=== PATIENT | female | born 1955 | race Two or more races ===

== ENCOUNTER 2022-05-30 23:56 | Inpatient (IN) | payer OTHER ==
--- NOTE | 2022-05-31 00:12 | NUR ---
SE RECIBE PTE ALERTA Y ORIETNADA X3 CUAL REFIERE QUE NO SIENTE MADHAV PIERNAS. FIELDS HIJO JOHN REFIERE QUE LA ENCONTRO EN FIELDS HOGAR DESORIENTADA X3. SE ROSA S/V Y SE UBICA.
[2022-05-31] MEDS ORDERED: LIPITOR20 MG PO (00:15)
[2022-05-31] MEDS ORDERED: VALSARTAN80 MG PO (00:15)
[2022-05-31] MEDS ORDERED: CATAPRES0.3 MG PO (00:15)
[2022-05-31] MEDS ORDERED: PEPCID AC20 MG (00:16)
[2022-05-31] MEDS ORDERED: LOPRESSOR25 MG PO (00:16)
[2022-05-31] MEDS ORDERED: GLIMEPIRIDE4 MG (00:16)
[2022-05-31] MEDS ORDERED: NEURONTIN300 MG PO (00:16)
[2022-05-31] MEDS ORDERED: CYMBALTA60 MG PO (00:16)
--- NOTE | 2022-05-31 01:19 | NUR ---
PTE EVALUADA POR EL DR FLORES QUIEN ORDENA EL TX. MR R ESQUIVEL ORIENTA SOBRE EL TX ORDENADO, LO CUAL REFIERE ENTENDER, REALIZA PRUEBAS DE LABORATORIO Y ADMINISTRA MEDICAMENTOS ALEX ORDEN MEDICA Y SIGUIENDO MEDIDAS ASEPTICAS. PENDIENTE A REALIZAR DUPPLEX EN LA MANANA. SE MANTIENE BAJO OBSERVACION.
--- NOTE | 2022-05-31 02:09 | NUR ---
SE REALIZA ADMINISTRACION DE MEDICAMENTOS.
--- NOTE | 2022-05-31 07:07 | NUR ---
PACIENTE FEMENINA ALERTA Y ORIENTADA X3 EN ALBERTO #9 CON BARRANDAS ELEVADAS. AREA DE VENOPUNCION SUNNY DE EDEMA Y ENROJECIMIENTO. PENDIENTE VENOUS DUPLEX A REALIZAR. SE LE JIAN EN TODO MOMENTO PRIVACIDAD Y SEGURIDAD.
--- NOTE | 2022-05-31 15:44 | NUR ---
SE RECIBE PTE FEMENINA ALERTA Y ORIENTADA X3 DEL TURNO ANTERIOR, CON BUEN PATRON RESPIRATORIO Y SIN QUEJA DE DOLOR. VENOPUNCION PATENTE, SUNNY DE EDEMA Y ERITEMA RECIBIENDO TERAPIA DE IVFS 0.9NSS BAJANDO A 100ML/HR. PENDIENTE CONSULTA CON YA NOTIFICADA. PTE EN ALBERTO NIVEL MAS BAJO CON BARANDAS ELEVADAS POR SEGURIDAD.
[2022-06-09] MEDS ORDERED: LIPITOR20 MG PO (12:27)
[2022-06-09] MEDS ORDERED: CATAPRES0.3 MG PO (12:27)
[2022-06-09] MEDS ORDERED: NEURONTIN300 MG PO (12:28)
[2022-06-09] MEDS ORDERED: TOPROL XL50 M1 PO (12:28)
[2022-06-09] MEDS ORDERED: VALSARTAN80 MG PO (12:28)
[2022-06-09] MEDS ORDERED: GLIMEPIRIDE4 MG PO (12:29)
[2022-06-09] MEDS ORDERED: INTESTINEX680 M1 PO (12:29)
[2022-06-09] MEDS ORDERED: PEPCID AC20 MG PO (12:29)
== END 2022-06-09 14:29 | disposition home or self-care (01) | DRG 300 ==
LOC: ER 23:56 → SEC-K 05-31 21:25 → SURH 06-01 20:25 → MEDJ 06-07 19:05
PROVIDERS: ADMIT Internal Medicine; ATTEND Internal Medicine
PROC: B54CZZZ Ultrasonography of Left Lower Extremity Veins (ICD-10-PCS; principal; 2022-05-31)
PROC: BW28ZZZ Computerized Tomography (CT Scan) of Head (ICD-10-PCS; 2022-06-03)
PROC: B030ZZZ Magnetic Resonance Imaging (MRI) of Brain (ICD-10-PCS; 2022-06-03)
DX: I83.028 Varicose veins of left lower extremity with ulcer other part of lower leg (principal); L03.116 Cellulitis of left lower limb; N17.8 Other acute kidney failure; N39.0 Urinary tract infection, site not specified; L08.89 Other specified local infections of the skin and subcutaneous tissue; E11.51 Type 2 diabetes mellitus with diabetic peripheral angiopathy without gangrene; D69.6 Thrombocytopenia, unspecified; B95.2 Enterococcus as the cause of diseases classified elsewhere; I73.9 Peripheral vascular disease, unspecified; I87.2 Venous insufficiency (chronic) (peripheral); I10 Essential (primary) hypertension; R41.82 Altered mental status, unspecified; Z20.822 Contact with and (suspected) exposure to COVID-19; E78.5 Hyperlipidemia, unspecified; Z79.4 Long term (current) use of insulin
CPT/HCPCS: 70553